=== PATIENT | female | born 1970 | race American Indian/Alaskan Native ===

== ENCOUNTER 2018-07-28 04:58 | Emergency (ER) | payer SELFPAY ==
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
[2018-07-28 06:14] VITALS: BP 136/79; PULSE 88; RESP 20; TEMP 98.3
[2018-07-28 06:32] VITALS: O2SAT 96
--- NOTE | 2018-07-28 11:04 | RAD ---
Left hand three views HISTORY: Swelling. Comparison: None. FINDINGS: Prominent soft tissue swelling overlying the dorsum of the left hand. No evidence of acute displaced fracture or dislocation. Two rounded radiopaque densities project over the nail bed of the 4th digit distally. Impression: Prominent soft tissue swelling. If pain persists, consider correlation with MRI.
== END 2018-07-28 06:39 | disposition home or self-care (01) ==
LOC: C.ER 04:58
DX: S60.222A Contusion of left hand, initial encounter (principal); Y04.2XXA Assault by strike against or bumped into by another person, initial encounter